=== PATIENT | male | born 1975 | race African-American/Black ===

== ENCOUNTER 2022-04-06 08:58 | Emergency (ER) | payer OTHER ==
[~2022-04-06] VITALS: Ht 175.3 cm; Wt 115.2 kg
[2022-04-06] MEDS ORDERED: LEXA1TAB2 PO (09:06)
[2022-04-06] MEDS ORDERED: LISI10TA22 PO (09:06)
[2022-04-06 11:30] VITALS: BP 131/80
== END 2022-04-06 11:35 | disposition home or self-care (01) ==
LOC: M ED 08:58
DX: J06.9 Acute upper respiratory infection, unspecified (principal); B34.8 Other viral infections of unspecified site; R00.0 Tachycardia, unspecified; R06.02 Shortness of breath; M79.10 Myalgia, unspecified site; R19.7 Diarrhea, unspecified; I10 Essential (primary) hypertension; Z79.899 Other long term (current) drug therapy